=== PATIENT | female | born 1955 | race Caucasian/White ===

== ENCOUNTER 2021-12-05 09:38 | Outpatient (CLI) | payer MEDICARE | END 2021-12-05 09:39 | disposition home or self-care (01) | LOC: CSHLAB 09:38 | PROVIDERS: ATTEND Internal Medicine | DX: Z20.822 Contact with and (suspected) exposure to COVID-19 (principal) | CPT/HCPCS: U0003; U0005 ==

== ENCOUNTER 2021-12-10 09:02 | Outpatient (CLI) | payer MEDICARE | END 2021-12-10 09:03 | disposition home or self-care (01) | LOC: CSHCP 09:02 | PROVIDERS: ATTEND Internal Medicine | DX: J44.9 Chronic obstructive pulmonary disease, unspecified (principal) | CPT/HCPCS: 94060; 94726; 94729; 94760 ==